=== PATIENT | female | born 1980 | race Caucasian/White ===

== ENCOUNTER 2016-11-30 15:46 | Emergency (ER) | payer BC, OTHER ==
[2016-11-30] MEDS ORDERED: NS 1,000 ML IV ONE (16:25)
[2016-11-30] MEDS ORDERED: ONDANSETRON 4 MG/2 ML VIAL IVP ONE (16:25)
--- NOTE | 2016-11-30 16:26 | UCPHY ---
H & P Patient Type: Established Chief Complaint Nursing Narrative: in [place] Sat evening started Vominting- better last 2 days then started vomiting again with lower abd cramping Time Seen by Provider: 11/30/16 16:03 HPI/ROS: Chief complaint: Nausea, vomiting, abdominal cramping HPI: 36-year-old female who was in [place] over the weekend. Three days ago had some nausea and vomiting with abdominal cramping. This was better the following day but worsened yesterday. Today has had persistent nausea with multiple episodes of vomiting. No hematemesis. She has not had any diarrhea but has had some abdominal cramping. No fevers or chills. Last menstrual cycle was 2 weeks ago and normal. She does not believe she is but it is possible. Does not have a history of any abdominal surgeries. ROS: 10 point Review of Systems is negative except as noted in the HPI. Past medical history: Asthma Physical exam: Gen: Awake, Alert, No Distress HEENT: Nose: no rhinorrhea Eyes: PERRLA, EOMI Mouth: Moist mucosa Neck: Supple, no JVD Chest: nontender, lungs clear to auscultation Heart: S1, S2 normal, no murmur Abd: Soft, non-tender, no guarding Back: no CVA tenderness, no midline tenderness Ext: no edema, non-tender Skin: no rash Neuro: CN II-XII intact, Sensation grossly intact, Strength 5/5 in bilateral upper and lower extremities - Personal History LMP (Females 10-55): 15-21 Days Ago Current Tetanus Diphtheria and Acellular Pertussis (TDAP): Yes Tetanus Vaccine Date: 2011 - Medical/Surgical History Other PMH: T/A - Family History Significant Family History: No pertinent family hx - Social History Smoking Status: Never smoked Constitutional: Initial Vital Signs Heart Rate 81 11/30/16 16:05 Respiratory Rate 18 11/30/16 16:05 Blood Pressure 128/80 H 11/30/16 16:05 O2 Sat (%) 98 11/30/16 16:05 O2 Delivery Mode Room Air Allergies/Adverse Reactions: Penicillins Allergy (Verified 12/23/15 13:54) Home Medications: Medication Instructions Recorded Albuterol Sulfate [Ventolin] mg IH 06/23/13 Fluticasone Hfa 220 Mcg [Flovent 1 puffs IH BID 06/23/13 220 MCG Hfa MDI (RX)] Sullements For Chronic Lyme 06/23/13 Thyroid,Pork 12/23/15 Medical Decision Making ED Course/Re-evaluation: CBC, chemistry are normal. HCG is negative. PT is feeling better. Sx are consistent with gastroenteritis. Had normal BM today. Is now tolerating PO. Will d/c with zofra, FU with PCP tomorrow if not improving. - Data Points Laboratory Results: Laboratory Results 11/30/16 16:22 11/30/16 16:22 11/30/16 16:22 WBC 4.73 10^3/uL (3.80-9.50) RBC 4.63 10^6/uL (4.18-5.33) Hgb 14.5 g/dL (12.6-16.3) Hct 42.1 % (38.0-47.0) MCV 90.9 fL (81.5-99.8) MCH 31.3 pg (27.9-34.1) MCHC 34.4 g/dL (32.4-36.7) RDW 12.6 % (11.5-15.2) Plt Count 240 10^3/uL (150-400) MPV 9.0 fL (8.7-11.7) Neut % (Auto) 64.9 % (39.3-74.2) Lymph % (Auto) 25.6 % (15.0-45.0) Bowie % (Auto) 7.6 % (4.5-13.0) Eos % (Auto) 1.5 % (0.6-7.6) Baso % (Auto) 0.2 L % (0.3-1.7) Nucleat RBC Rel Count 0.0 % (0.0-0.2) Absolute Neuts (auto) 3.07 10^3/uL (1.70-6.50) Absolute Lymphs (auto) 1.21 10^3/uL (1.00-3.00) Absolute Monos (auto) 0.36 10^3/uL (0.30-0.80) Absolute Eos (auto) 0.07 10^3/uL (0.03-0.40) Absolute Basos (auto) 0.01 L 10^3/uL (0.02-0.10) Absolute Nucleated RBC 0.00 10^3/uL (0-0.01) Immature Gran % 0.2 % (0.0-1.1) Immature Gran # 0.01 10^3/uL (0.00-0.10) Sodium 138 mEq/L (134-144) Potassium 3.9 mEq/L (3.5-5.2) Chloride 101 mEq/L (97-110) Carbon Dioxide 28 mEq/l (22-31) Anion Gap 9 mEq/L (8-16) BUN 10 mg/dL (7-23) Creatinine 0.7 mg/dL (0.6-1.0) Estimated GFR > 60 Glucose 88 mg/dL (70-100) Calcium 9.4 mg/dL (8.5-10.4) Total Bilirubin 0.5 mg/dL (0.1-1.4) Conjugated Bilirubin 0.3 mg/dL (0.0-0.5) Unconjugated Bilirubin 0.2 mg/dL (0.0-1.1) AST 36 IU/L (14-46) ALT 39 IU/L (9-52) Alkaline Phosphatase 68 IU/L (38-126) Total Protein 7.5 g/dL (6.3-8.2) Albumin 4.1 g/dL (3.5-5.0) Lipase 83.0 IU/L (23-300) Beta HCG, Qual NEGATIVE Medications Given: Discontinued Medications Sodium Chloride (Ns) 1,000 mls @ 0 mls/hr IV ONCE ONE PRN Reason: Wide Open Stop: 11/30/16 16:26 Last Admin: 11/30/16 16:54 Dose: 1,000 mls Ondansetron HCl (Zofran) 4 mg IVP EDNOW ONE Stop: 11/30/16 16:26 Last Admin: 11/30/16 16:54 Dose: 4 mg Departure - Departure Disposition: Home, Routine, Self-Care Clinical Impression: Gastroenteritis, Dehydration, Vomiting Condition: Good Instructions: Gastroenteritis (ED), Dehydration (ED) Additional Instructions: You may take ondansetron as needed for nausea and vomiting. Eat small frequent bland meals. Drink plenty of fluids. Follow up with primary care if not improved in 2-3 days. Return to Urgent Care or go to the nearest emergency department for worsening symptoms or any concerns. Referrals: [place],. [Primary Care Provider] - As per Instructions [facility] [Outside] - As per Instructions - PQRS PQRS Measurement: NA
[2016-11-30 16:27] LABS: % IMMATURE GRANULYOCYTES 0.2 % (0.0-1.1); ABSOLUTE IMMATURE GRANULOCYTES 0.01 10^3/uL (0.00-0.10); ADD DIFF? NO; ADD MORPH? NO; ADD SCAN? NO; ATYPICAL LYMPHOCYTE FLAG 40 (0-99); FRAGMENT RBC FLAG 0 (0-99); HEMATOCRIT 42.1 % (38.0-47.0); HEMOGLOBIN 14.5 g/dL (12.6-16.3); LEFT SHIFT FLG 0 (0-99); LIPEMIA HEMOLYSIS FLAG 90 (0-99); MEAN CELL HEMOGLOBIN 31.3 pg (27.9-34.1); MEAN CELL HEMOGLOBIN CONCENTR. 34.4 g/dL (32.4-36.7); MEAN CELL VOLUME 90.9 fL (81.5-99.8); PLATELET CLUMPS FLAG 0 (0-99); PLATELET COUNT 240 10^3/uL (150-400); RED BLOOD CELL COUNT 4.63 10^6/uL (4.18-5.33); RED CELL DISTRIBUTION WIDTH 12.6 % (11.5-15.2)
[2016-11-30 16:40] LABS: ALANINE AMINOTRANSFERASE 39 IU/L (9-52); ALBUMIN 4.1 g/dL (3.5-5.0); ALKALINE PHOSPHATASE 68 IU/L (38-126); ANION GAP 9 mEq/L (8-16); ASPARTATE AMINOTRANSFERASE 36 IU/L (14-46); BILIRUBIN,TOTAL 0.5 mg/dL (0.1-1.4); BILIRUBIN-CONJUGATED 0.3 mg/dL (0.0-0.5); BILIRUBIN-UNCONJUGATED 0.2 mg/dL (0.0-1.1); CALCIUM 9.4 mg/dL (8.5-10.4); CARBON DIOXIDE 28 mEq/l (22-31); CHLORIDE 101 mEq/L (97-110); CREATININE 0.7 mg/dL (0.6-1.0); GLOMERULAR FILTRATION RATE > 60; GLUCOSE 88 mg/dL (70-100); POTASSIUM 3.9 mEq/L (3.5-5.2); SODIUM 138 mEq/L (134-144); TOTAL PROTEIN 7.5 g/dL (6.3-8.2)
[2016-11-30] MEDS ORDERED: ONDANSETRON 4MG PREPACK#2 BTL TAKEHOME ONE (17:35)
[2016-11-30 17:49] VITALS: BP 118/82; PULSE 68; RESP 20; O2SAT 95
[2016-11-30 17:52] VITALS: TEMP 97.9
== END 2016-11-30 17:49 | disposition home or self-care (01) ==
LOC: CED 15:46
DX: K52.9 Noninfective gastroenteritis and colitis, unspecified (principal); E86.0 Dehydration
CPT/HCPCS: 80048-PO; 80076-PO; 83690-PO; 84703-PO; 85025-PO; 96360-PO; 96361-PO; 96374-PO; 99215-PO; G0463-PO; J2405

== ENCOUNTER 2017-04-04 20:13 | Emergency (ER) | payer OTHER | END 2017-04-04 20:30 | disposition left against medical advice (07) | LOC: CED 20:13 | DX: Z53.21 Procedure and treatment not carried out due to patient leaving prior to being seen by health care provider (principal) ==

== ENCOUNTER → 2017-07-11 | Outpatient (CLI) | payer OTHER | LOC: FIMAGING 18:03 | PROVIDERS: ATTEND Internal Medicine Critical Care Medicine | DX: J45.21 Mild intermittent asthma with (acute) exacerbation (principal) ==